=== PATIENT | male | born 1960 ===

== ENCOUNTER → 2017-03-12 | Emergency (ER) | payer OTHER ==
[~2017-03-12] VITALS: Ht 165.1 cm; Wt 95.3 kg
[~2017-03-12] MED LIST: ASA81 MG; ATORVASTATIN CA10 MG; HYDROCHLOROTH12.5 MG; LISINOPRIL10 MG; METOPROLOL SUCC50 MG; PLAVIX75 MG; VASOTEC5 MG PO
== END | disposition home or self-care (01) ==
LOC: ER 08:15
DX: H92.02 Otalgia, left ear (principal)

== ENCOUNTER 2017-10-16 15:50 | Emergency (ER) | payer OTHER ==
[~2017-10-16] VITALS: Ht 165.1 cm; Wt 93.0 kg
== END 2017-10-16 19:26 | disposition home or self-care (01) ==
LOC: ER 15:50
DX: S70.02XA Contusion of left hip, initial encounter (principal); W18.39XA Other fall on same level, initial encounter; Y93.89 Activity, other specified; Y92.098 Other place in other non-institutional residence as the place of occurrence of the external cause; Y99.8 Other external cause status

== ENCOUNTER 2018-12-04 17:32 | Emergency (ER) | payer OTHER ==
[~2018-12-04] VITALS: Ht 170.2 cm; Wt 98.4 kg
[2018-12-04] MEDS ORDERED: HYDROCHLOROTH12.5 MG (17:56)
[2018-12-04] MEDS ORDERED: LISINOPRIL20 MG (17:56)
[2018-12-04] MEDS ORDERED: METOPROLOL SUCC50 MG (17:56)
[2018-12-04] MEDS ORDERED: ATORVASTATIN CA10 MG (17:56)
[2018-12-04] MEDS ORDERED: ASPIR 8181 MG (17:56)
== END 2018-12-04 21:03 | disposition home or self-care (01) ==
LOC: ER 17:32 → EDBD 18:05 → ER 18:05
DX: K21.9 Gastro-esophageal reflux disease without esophagitis (principal); I10 Essential (primary) hypertension

== ENCOUNTER 2019-01-04 08:57 | Emergency (ER) | payer OTHER ==
[~2019-01-04] VITALS: Ht 170.2 cm; Wt 97.5 kg
[~2019-01-04 08:57] MED LIST changes: +ASPIR 8181 MG; +LISINOPRIL20 MG
[2019-01-04] MEDS ORDERED: TOPROL XL50 M1 (09:11)
== END 2019-01-04 13:03 | disposition home or self-care (01) ==
LOC: ER 08:57
DX: R07.89 Other chest pain (principal)